=== PATIENT | female | born 1990 | race Caucasian/White ===

== ENCOUNTER → 2016-07-28 | Outpatient (CLI) | payer MEDICAID ==
--- NOTE | 2016-07-28 11:32 | US ---
EXAMINATION TYPE: US OB anatomy transabd DATE OF EXAM: 07/28/2016 10:12 AM COMPARISON: NONE HISTORY: LGA TECHNIQUE: Transabdominal (TA) EXAM MEASUREMENTS: GESTATIONAL AGE / DATING Physician Established: (19 weeks/5 days) EDC: 12/17/2016 Dates by LMP: unknown Dates by First Scan: today Dates by Current Scan for: (19 weeks/1 day) EDC: 12/21/2016 SURVEY IUP: Single PLACENTA: Posterior PREVIA: No previa ELAINE: 9.6 cm wnl for machine range (8.5- 22.7cm). A remeasure with LLQ is 5.5cm Pocket A/P on image #49 which would = 10.5cm ELAINE. CERVICAL LENGTH (transabdominal: norm > 3.0cm): 3.1 cm BIOMETRY PRESENTATION: Variable LIE: Oblique BPD: 4.4 cm 19 weeks / 2 days HC: 16.3 cm 19 weeks / 0 days AC: 14.1 cm 19 weeks / 3 days FL: 2.9 cm 18 weeks / 6 days ESTIMATED WEIGHT IN GRAMS: 277.8 grams ESTIMATED WEIGHT IN LBS/OZS: 0 lbs. 10 oz. WEIGHT PERCENTAGE BASED ON ESTABLISHED DATE: 18.6 % HC/AC: 1.16 FL/AC: 20.55 HEART RATE: 135 bpm RHYTHM: Normal ANATOMY SEEN (within normal limits): * Lateral Vent (< 1 cm) = 0.7cm * Cisterna Magna (< 1.1 cm) =0.4cm * Nuchal Fold (< 0.6 cm) = 0.4cm * Cerebellum (varies with age) = 2.0cm Choroid Plexus (bilateral) Midline Falx Cavus Septi Pellucidi Four Chamber Heart Outflow tracts: LVOT/RVOT Stomach Situs Diaphragm Kidneys (bilateral) Bladder Cord Insert Three Vessel Cord Longitudinal Spine Transverse Spine Arms (bilateral) Legs (bilateral) ANATOMY NOT SEEN: Nose / Lips: early jaw was imaged, however, optimal imaging would be at > 20 weeks gestation IMPRESSION: Single, live, IUP, 19 weeks/1 day, EDC: 12/21/2016, HR 135bpm
== END | disposition home or self-care (01) ==
LOC: RADUSWWP 08:55
PROVIDERS: ATTEND Obstetrics & Gynecology
DX: O36.62X0 Maternal care for excessive fetal growth, second trimester, not applicable or unspecified (principal); Z3A.19 19 weeks gestation of pregnancy
CPT/HCPCS: 76811

== ENCOUNTER → 2016-09-09 | Outpatient (CLI) | payer MEDICAID ==
[2016-09-09 11:12] LABS: CH 29.8; CHCM 32.9; HCT 36.6 % (34.0-46.0); HDW 2.45; HGB 12.3 gm/dL (11.4-16.0); MCH 30.5 pg (25.0-35.0); MCHC 33.5 g/dL (31.0-37.0); RBC 4.02 m/uL (3.80-5.40); RDW 13.7 % (11.5-15.5); WBC 10.2 k/uL (3.8-10.6)
== END | disposition home or self-care (01) ==
LOC: LABWHC1 09:40
PROVIDERS: ATTEND Obstetrics & Gynecology
DX: Z34.02 Encounter for supervision of normal first pregnancy, second trimester (principal); Z3A.00 Weeks of gestation of pregnancy not specified
CPT/HCPCS: 36415; 82950; 85027

== ENCOUNTER → 2016-11-15 | Outpatient (CLI) | payer MEDICAID ==
--- NOTE | 2016-11-15 13:24 | US ---
EXAMINATION TYPE: US OB anatomy transabd DATE OF EXAM: 11/15/2016 10:35 AM COMPARISON: 07/28/2016 HISTORY: 26-year-old female O36.63X0 3rd trimester 35 week scan TECHNIQUE: Transabdominal scanning FINDINGS: EXAM MEASUREMENTS: GESTATIONAL AGE / DATING Physician Established: (35 weeks/3 days) EDC: 12/17/2016 Dates by LMP: unknown Dates by First Scan: LEAD FORMER here Dates by Current Scan for: (34 weeks/3 days) EDC: 12/24/2016 SURVEY IUP: Single PLACENTA: Fundal PREVIA: No previa ELAINE: 19.4 cm Normal CERVICAL LENGTH (transabdominal: norm > 3.0cm): 3.4 cm BIOMETRY PRESENTATION: Vertex LIE: Longitudinal BPD: 8.7 cm 35 weeks / 1 days HC: 31.4 cm 35 weeks / 2 days AC: 31.6 cm 35 weeks / 4 days FL: 6.6 cm 34 weeks / 0 days ESTIMATED WEIGHT IN GRAMS: 2585 grams ESTIMATED WEIGHT IN LBS/OZS: 5 lbs. 11 oz. WEIGHT PERCENTAGE BASED ON ESTABLISHED DATE: 38% vs 18.6% on 07/28/2016. HC/AC: 0.9 Normal FL/AC: 20.9 Normal HEART RATE: 132 bpm RHYTHM: Normal ANATOMY SEEN (within normal limits): Midline Falx Cavus Septi Pellucidi Outflow tracts: RVOT Stomach Situs Nose / Lips Diaphragm Kidneys (bilateral) Bladder Three Vessel Cord ANATOMY NOT SEEN OR SUBOPTIMALLY VISUALIZED: due to age and crowding Lateral Vent (< 1 cm) Cisterna Magna (< 1.1 cm) Nuchal Fold (< 0.6 cm) Cerebellum (varies with age) Choroid Plexus (bilateral) LVOT Cord Insert Arms (bilateral) Legs (bilateral) Longitudinal Spine - limited delineation of skin line Transverse Spine ANATOMY WHICH SHOULD BE REASSESSED: Four Chamber Heart - prominent space along the interatrial region. IMPRESSION: 1. Single live intrauterine with established gestational age of 35 weeks 3 days. Current ul trasound biometry is smaller but concordant (34 weeks 3 days) placing the child at the 38th percentil e for weight. There has been appropriate interval growth from 07/28/2016. 2. Recommend follow-up for the four-chamber heart view and correlation to appearance on the patient's scan at the office. There is a prominent space in the region of the interatrial septum. This may si mply be on the basis of redundant flap of the foramen ovale. ASD II should be excluded.
== END | disposition home or self-care (01) ==
LOC: RADUSWWP 09:46
PROVIDERS: ATTEND Obstetrics & Gynecology
DX: O36.63X0 Maternal care for excessive fetal growth, third trimester, not applicable or unspecified (principal); Z3A.35 35 weeks gestation of pregnancy
CPT/HCPCS: 76811; 87081

== ENCOUNTER 2016-11-29 11:17 | Outpatient (CLI) | payer MEDICAID | END 2016-11-29 12:13 | disposition home or self-care (01) | LOC: FBPOP 11:17 | PROVIDERS: ATTEND Obstetrics & Gynecology | DX: O26.93 Pregnancy related conditions, unspecified, third trimester (principal); Z3A.37 37 weeks gestation of pregnancy | CPT/HCPCS: 59025 ==

== ENCOUNTER 2016-12-01 05:50 | Inpatient (IN) | payer MEDICAID ==
--- NOTE | 2016-12-01 05:52 | P.HPOB ---
History of Present Illness H&P Date: 12/01/16 Chief Complaint: Umbilical vein varix This patient is a pleasant 26-year-old 1 para 0 female estimated date of confinement 12/17/2016 estimated gestational age 37-5/7 who presents to labor and delivery for induction of labor secondary to umbilical varix. Patient's history is such that she had a 35 week ultrasound that the radiologist thought she had a atrioseptal defect. Patient was sent to maternal- medicine for heart echo and level III ultrasound. cardiac echo was normal without evidence of a atrioseptal defect however she was found to have an umbilical vein varix. This dilation was approximately [address] Sauceda maternal medicine recommended delivery between 37 and 38 weeks due to increased risk of complications. Patient's been watched with nonstress tests which have been reactive and now presents for delivery. care otherwise has been uncomplicated. Review of Systems Constitutional: Denies chills, Denies fever Ears, nose, mouth and throat: Denies headache, Denies sore throat Cardiovascular: Denies chest pain, Denies shortness of breath Respiratory: Denies cough Gastrointestinal: Reports heartburn Genitourinary: Reports Menstruation: Reports amenorrhea Musculoskeletal: Reports as per HPI Integumentary: Denies pruritus, Denies rash Neurological: Denies numbness, Denies weakness Past Medical History Past Medical History: No Reported History History of Any Multi-Drug Resistant Organisms: None Reported Past Surgical History: Adenoidectomy Additional Past Surgical History / Comment(s): Patient is had a wisdom tooth extraction. Past Anesthesia/Blood Transfusion Reactions: No Reported Reaction Past Psychological History: No Psychological Hx Reported Smoking Status: Never smoker Past Alcohol Use History: None Reported Past Drug Use History: None Reported Medications and Allergies Allergies Allergy/AdvReac Type Severity Reaction Status Date / Time No Known Allergies Allergy Verified 11/29/16 12:30 Exam - OBG Physical Exam Abdomen: bowel sounds normal, no diffuse tenderness, no bruit present, no guarding noted, no hepatomegaly, no splenomegaly, no mass Vulva: both: normal Cervix: Cervix in the office was 1-2 cm dilated. Uterus: enlarged (Fundal height the office was consistent with a term . ) Results labs show her blood type to be a positive, rubella immune, RPR is nonreactive, hepatitis B is negative, HIV is nonreactive, Glucola was normal, group B strep was negative. Ultrasound per maternal medicine as above. Assessment and Plan (1) Umbilical vein abnormality complicating Narrative/Plan: This is a pleasant 26-year-old 1 para 0 female 37-5/7 weeks gestation admitted to labor and delivery for induction secondary to umbilical vein varix. Plan is induction of labor and anticipate vaginal delivery. Status: Acute
[2016-12-01] MEDS ORDERED: METHYLERGONOVINE 0.2 MG/ML 1 ML AMP IM PRN (06:15)
[2016-12-01] MEDS ORDERED: TERBUTALINE 1 MG/ML VIAL SQ PRN (06:15)
[2016-12-01] MEDS ORDERED: LIDOCAINE 1% (PF) 10 MG/ML (30 ML SDV) SQ PRN (06:15)
[2016-12-01] MEDS ORDERED: CARBOPROST TROMETHAMINE 250 MCG/ML 1 ML AMP IM PRN (06:15)
[2016-12-01] MEDS ORDERED: OXYTOCIN 10 UNIT/ML 1 ML VIAL IM PRN (06:15)
[2016-12-01] MEDS ORDERED: OXYTOCIN 20 UNITS/1000 ML NS 1,000 ML IV SCH ×2 (06:15→20:15)
[2016-12-01 06:28] LABS: Basophils % (A) 0 %; CHCM 33.6; Eosinophils # (A) 0.2 k/uL (0-0.7); Eosinophils % (A) 2 %; HCT 38.5 % (34.0-46.0); HDW 2.44; Luc % (Auto) 3; Lymphocytes # (A) 2.3 k/uL (1.0-4.8); Lymphocytes % (A) 25 %; MCH 30.4 pg (25.0-35.0); MCHC 33.8 g/dL (31.0-37.0); MCV 89.9 fL (80.0-100.0); Mean Platelet Volume 10.2; Monocytes # (A) 0.6 k/uL (0-1.0); Monocytes % (A) 6 %; Neutrophils % (A) 64 %; RBC 4.29 m/uL (3.80-5.40); RDW 14.1 % (11.5-15.5); WBC 9.4 k/uL (3.8-10.6); WBC (Perox) 9.85
[2016-12-01 06:35] VITALS: BMI 29.7
[2016-12-01] MEDS: LACTATED RINGERS 1,000 ML IV SCH ×2 (06:37→12:40)
[2016-12-01] MEDS ORDERED: BUPIVACAINE (PF) 0.25% 25 ML, fentaNYL (PF) 200 MCG in SODIUM CHLORIDE 0.9% 71 ML EPIDURAL ONE (16:22)
[2016-12-01] MEDS ORDERED: CITRIC ACID-SODIUM CITRATE 15 ML CUP PO ONE (19:08)
[2016-12-01] MEDS ORDERED: ceFAZolin 2 GM in SODIUM CHLORIDE 0.9% 100 ML IVPB ONE (19:08)
[2016-12-01] MEDS ORDERED: OXYTOCIN 10 UNIT/ML 1 ML VIAL ONE ×2 (19:20)
[2016-12-01] MEDS ORDERED: KETOROLAC 30 MG/ML 1 ML VIAL ONE (19:20)
[2016-12-01] MEDS ORDERED: SODIUM CHLORIDE 0.9% 100 ML BAG ONE (19:20)
[2016-12-01] MEDS ORDERED: ONDANSETRON 4 MG/2 ML VIAL ONE (19:20)
[2016-12-01] MEDS ORDERED: ePHEDrine 50 MG/ML 1 ML AMP ONE (19:20)
[2016-12-01] MEDS ORDERED: BUPIVACAINE (PF) 0.25% 30 ML VIAL ONE (19:20)
[2016-12-01] MEDS ORDERED: CHLOROPROCAINE 3% 30 MG/ML 20 ML VIAL ONE (19:20)
[2016-12-01] MEDS ORDERED: fentaNYL (PF) 50 MCG/ML 5 ML AMP ONE (19:20)
[2016-12-01] MEDS ORDERED: METOCLOPRAMIDE 5 MG/ML 2 ML VIAL IVP PRN (20:07)
[2016-12-01] MEDS ORDERED: SIMETHICONE 80 MG CHEWABLE PO PRN (20:07)
[2016-12-01] MEDS ORDERED: diphenhydrAMINE 25 MG CAP PO PRN (20:07)
[2016-12-01] MEDS ORDERED: Acetaminophen-Codeine 300-30mg TAB PO PRN (20:07)
[2016-12-01] MEDS ORDERED: diphenhydrAMINE 50 MG/ML 1 ML VIAL IVP PRN (20:07)
[2016-12-01] MEDS ORDERED: ZOLPIDEM 5 MG TAB PO PRN (20:07)
[2016-12-01] MEDS ORDERED: ONDANSETRON 4 MG/2 ML VIAL IVP PRN (20:07)
[2016-12-01] MEDS ORDERED: ACETAMINOPHEN TAB 325 MG TAB PO PRN (20:07)
[2016-12-01] MEDS ORDERED: LANOLIN CREAM 5 GM TUBE TOPICAL PRN (20:07)
[2016-12-01] MEDS ORDERED: NALOXONE 0.4 MG/ML 1 ML VIAL IV PRN (20:07)
--- NOTE | 2016-12-01 20:19 | P.OP ---
Date of Procedure: 12/01/16 Preoperative Diagnosis: #1: 37-5/7 week . #2: Umbilical vein varix #3: Nonreassuring heart tones remote from delivery. Postoperative Diagnosis: Same Procedure(s) Performed: Primary low transverse section Implants: Anesthesia: epidural Surgeon: Christopher Aragon Head Of Business Development #1: Talat Acosta Estimated Blood Loss (ml): 800 Pathology: other Condition: stable (Central) Disposition: floor Indications for Procedure: Please see dictated H&P for intimate details of this patient's admission. Brief summary this is a pleasant 26-year-old 1 para 0 female 37-5/7 weeks' gestation is admitted to labor and delivery for induction of labor secondary to umbilical vein varix. Patient is 1-2 cm dilated on admission and has artificial rupture membranes for clear fluid. Labor is induced with Pitocin per protocol. Patient does get to complete that is having some deep variable decelerations. Patient attempts to push but with every contraction she continues to have deep variables and is not close to delivery and at this time I recommended proceed with section for delivery. Patient does understand the surgery and risks including risks of infection, bleeding, possible injury bowel, bladder, vessels, and/or other organs. All the patient' s questions are answered and consent is obtained. Operative Findings: This is a vigorous viable female infant Apgars 9 and 9 delivery time is 1939 hrs. had a nuchal cord 1. Description of Procedure: This patient has a Morris catheter placed to straight drain. She subsequently taken to the operating room where her epidural is dosed up for sufficient level of surgery. With an adequate level of anesthesia she has abdominal prep and drape. Scalpels taken and a Pfannenstiel skin incision is then made. A second scalpel is taken down the fascia, and the fascia scored with a scalpel. Fascial incision extended bilaterally using the Rowe scissors. Fascia is then dissected off the rectus muscles sharply. Rectus muscles are the peritoneum identified and entered sharply. Peritoneal incision extended superior and inferior without difficulty. Bladder blade is then placed. Bladder peritoneum was taken sharply off the lower uterine segment. Bladder blade is then placed. Scalpels and taken low transverse uterine incision is made. Using a hemostat I enter the uterine cavity bluntly. There is loss of clear fluid this incision is extended bluntly as well. 's head is then guided through the incision with fundal pressure delivered. Mouth and nares are bulb suctioned. There is a nuchal cord which is reduced. We then have delivery anterior posterior shoulder and rest this 's body. This is a vigorous viable female infant Apgars are 9 and 9 delivery time is 1939 hrs. After delivery of the infant the umbilical cord is doubly clamped and cut appears to be trivascular. The placenta is then manually extracted intact. Uterus is then externalized and uterine incision demarcated with Hernandez clamps. Uterine incision is then closed using 0 Vicryl running locked fashion 2 layers. Excellent hemostasis is noted. Bladder peritoneum was then closed using a 3-0 Vicryl. Excess fluid is removed from the abdomen and pelvis. Uterus tubes and ovaries appear normal for term gestation. Uterus placed back into the abdomen. Parietal peritoneum was then closed using 0 Vicryl running fashion. Rectus muscles reapproximated in 0 Vicryl interrupted fashion. Fascia is then closed using 0 PDS. Fascial incision is intact and hemostatic. Subcutaneous tissues and closed using a 3-0 Vicryl. Skin is and closed using jessica. All counts are correct 3. There are no complications. Infant and mother are stable in their room.
[2016-12-01] MEDS: HYDROmorphone PCA 5 MG/25 ML SYRINGE IV PRN ×2 (20:33→23:09)
[2016-12-02] MEDS: KETOROLAC 30 MG/ML 1 ML VIAL IVP PRN ×4 (01:24→22:06)
[2016-12-02] MEDS: LACTATED RINGERS 1,000 ML IV SCH ×2 (01:25→12:50)
[2016-12-02] MEDS: ceFAZolin 2 GM in SODIUM CHLORIDE 0.9% 100 ML IVPB SCH ×2 (04:11→12:50)
--- NOTE | 2016-12-02 05:37 | P.PNOBGPC ---
Subjective - Subjective Patient reports: Reports appetite normal, Reports voiding normally, Reports pain well controlled, Reports ambulating normally : doing well Objective - Vital Signs Latest vital signs: Vital Signs Temp Pulse Pulse Resp BP Pulse Ox 12/02/16 04:00 98.5 F 75 17 114/68 95 12/01/16 23:35 99.0 F 87 18 109/88 98 12/01/16 22:05 84 18 120/66 99 12/01/16 21:35 97.3 F L 85 18 114/58 99 12/01/16 21:05 79 18 107/58 100 12/01/16 20:50 86 17 106/58 100 12/01/16 20:35 98.2 F 93 18 118/67 100 12/01/16 20:20 112 H 17 110/58 12/01/16 20:05 97.5 F L 104 H 18 109/55 100 12/01/16 06:25 97.5 F L 78 18 128/82 Intake and Output 12/01/16 12/01/16 12/02/16 14:59 22:59 06:59 Intake Total 839.15 600 Output Total 1400 Balance -560.85 600 Intake: IV 800 Intake, IV Titration 39.15 Amount Oxytocin 20 Units/1000 ml 39.15 Ns 1,000 ml @ 1 MILLIUNIT/MIN 3 mls/hr IV .Q24H [facility] Rx#:[id number] Oral 600 Output: Urine 600 Estimated Blood Loss 800 Other: Voiding Method Indwelling Catheter Indwelling Catheter # Voids 1 - Exam Lungs: bilateral: normal Chest: Normal S1, Normal S2 Extremities: Present: normal Abdomen: Present: normal appearance, soft. Absent: distention, tenderness Incision: Present: normal, dry, intact Uterus: Present: normal, firm - Labs Labs: Abnormal Lab Results - Last 24 Hours (Table) 12/01/16 Range/Units 06:10 Plt Count 147 L (150-450) k/uL Assessment and Plan (1) Umbilical vein abnormality complicating Narrative/Plan: Postoperative day #1. Patient is resting without complaints. Vital signs are stable she is afebrile. Uterus is firm appropriately tender. Incision is intact and dry. CBC is pending at this time. Plan today is to continue routine postoperative care. We will discontinue her TOP IRONER, discontinue her catheter, advance to regular diet, allow patient to shower. Current Visit: Yes Status: Acute Code(s): O35.8XX0 - MATERNAL CARE FOR OTH ABNORMALITY AND DAMAGE, UNSP SNOMED Code(s): 38046124
[2016-12-02 06:24] LABS: Basophils % (A) 0 %; CH 29.9; CHCM 33.3; Eosinophils # (A) 0.1 k/uL (0-0.7); Eosinophils % (A) 0 %; HCT 33.6 % (34.0-46.0); HDW 2.42; HGB 11.1 gm/dL (11.4-16.0); Luc # (Auto) 0.14; Luc % (Auto) 1; Lymphocytes # (A) 1.5 k/uL (1.0-4.8); Lymphocytes % (A) 9 %; MCH 29.9 pg (25.0-35.0); MCHC 33.1 g/dL (31.0-37.0); MCV 90.2 fL (80.0-100.0); Mean Platelet Volume 10.2; Monocytes # (A) 0.6 k/uL (0-1.0); Monocytes % (A) 3 %; Neutrophils # (A) 15.6 k/uL (1.3-7.7); Neutrophils % (A) 87 %; RBC 3.72 m/uL (3.80-5.40); RDW 14.2 % (11.5-15.5); WBC 17.9 k/uL (3.8-10.6); WBC (Perox) 19.44
[2016-12-02] MEDS: SENNOSIDES-DOCUSATE SODIUM 1 EACH TAB PO SCH ×2 (10:02→19:50)
[2016-12-02] MEDS: Acetaminophen-Codeine 300-30mg TAB PO PRN ×2 (12:50→19:50)
[2016-12-02 23:11] VITALS: RESP 16
[2016-12-03] MEDS: Acetaminophen-Codeine 300-30mg TAB PO PRN ×2 (01:44→19:46)
--- NOTE | 2016-12-03 05:45 | P.PNOBGPC ---
Subjective - Subjective Patient reports: Reports appetite normal, Reports voiding normally, Reports pain well controlled, Reports ambulating normally [place]que[place]: doing well Objective - Vital Signs Latest vital signs: Vital Signs Temp Pulse Resp BP Pulse Ox 12/02/16 23:09 98.4 F 83 16 110/59 97 12/02/16 20:00 98.0 F 83 18 112/80 12/02/16 16:00 98.5 F 81 18 113/62 12/02/16 12:00 97.7 F 87 18 114/72 12/02/16 08:00 97.9 F 81 18 105/67 Intake and Output 12/02/16 12/02/16 12/03/16 14:59 22:59 06:59 Intake Total 500 Output Total 1400 Balance -1400 500 Intake: IV 500 Invasive Line 1 500 Output: Urine 1400 Other: # Voids 1 - Exam Lungs: bilateral: normal Chest: Normal S1, Normal S2 Extremities: Present: normal Abdomen: Present: normal appearance, soft. Absent: distention, tenderness Incision: Present: normal, dry, intact Uterus: Present: normal, firm - Labs Labs: Abnormal Lab Results - Last 24 Hours (Table) 12/02/16 Range/Units 05:22 WBC 17.9 H (3.8-10.6) k/uL RBC 3.72 L (3.80-5.40) m/uL Hgb 11.1 L (11.4-16.0) gm/dL Hct 33.6 L (34.0-46.0) % Plt Count 127 L (150-450) k/uL Neutrophils # 15.6 H (1.3-7.7) k/uL Assessment and Plan (1) Umbilical vein abnormality complicating Narrative/Plan: Post operative day #2. Patient is resting without complaints. Vital signs are stable she's afebrile. Uterus is firm nontender her incision is intact and dry. CBC yesterday was normal. Plan is to continue routine postoperative care and discharge home tomorrow. Current Visit: Yes Status: Acute Code(s): O35.8XX0 - MATERNAL CARE FOR OTH ABNORMALITY AND DAMAGE, UNSP SNOMED Code(s): 15961389
--- NOTE | 2016-12-03 05:47 | P.DS ---
Providers Date of admission: 12/01/16 05:50 Expected date of discharge: 12/04/16 Attending physician: Christopher Aragon Primary care physician: Ilda Fitzgerald - Discharge Diagnosis(es) (1) Umbilical vein abnormality complicating Current Visit: Yes Status: Acute Hospital Course: Please see dictated H&P for intimate details of this patient's admission. Brief summary this pleasant 26-year-old 1 para 0 female 37-5/7 weeks gestation who is admitted to labor and delivery for induction of labor secondary to umbilical vein varix. Patient's subsequent undergoes a primary low transverse section for nonreassuring heart tones for viable female infant. Please see dictated delivery note. By post operative day #3 patient's felt be stable for discharge home follow up with me in 1 week. Procedures: Induction of labor and primary low transverse section. Patient Condition at Discharge: Good Plan - Discharge Summary New Discharge Prescriptions: New Acetaminophen-Codeine 300-30mg [Tylenol w/codeine #3] 1 - 2 each PO Q4HR PRN #40 tab PRN Reason: Mild Pain Ibuprofen [Motrin] 600 mg PO Q6HR PRN #40 tab PRN Reason: Mild Pain Or Fever >= 100.5 No Action Docusate [Colace] 100 mg PO DAILY PRN PRN Reason: Constipation Calcium Carbonate [Tums] 1,000 mg PO QID PRN PRN Reason: Heartburn Pnv,Calcium 72/Iron/Folic Acid [ Plus Tablet] 1 tab PO DAILY Discharge Medication List Calcium Carbonate [Tums] 1,000 mg PO QID PRN 12/01/16 [History] Docusate [Colace] 100 mg PO DAILY PRN 12/01/16 [History] Pnv,Calcium 72/Iron/Folic Acid [ Plus Tablet] 1 tab PO DAILY 12/01/16 [ History] Acetaminophen-Codeine 300-30mg [Tylenol w/codeine #3] 1 - 2 each PO Q4HR PRN # 40 tab 12/03/16 [Rx] Ibuprofen [Motrin] 600 mg PO Q6HR PRN #40 tab 12/03/16 [Rx] Follow up Appointment(s)/Referral(s): Christopher Aragon MD [STAFF PHYSICIAN] - 01/14/17 10:15 am (Please see me in 1 week for an incision check as well.) Patient Instructions/Handouts: (DC) Activity/Diet/Wound Care/Special Instructions: No strenuous activity or heavy lifting for 6 weeks. No intercourse or anything per vagina for 6 weeks. Discharge Disposition: HOME SELF-CARE
[2016-12-03] MEDS: KETOROLAC 30 MG/ML 1 ML VIAL IVP PRN (08:48)
[2016-12-03] MEDS: SENNOSIDES-DOCUSATE SODIUM 1 EACH TAB PO SCH ×2 (08:49→19:46)
[2016-12-03] MEDS: IBUPROFEN 600 MG TAB PO PRN ×2 (14:03→23:17)
[2016-12-03] MEDS: LACTATED RINGERS 1,000 ML IV SCH ×2 (21:40→21:41)
[2016-12-04] MEDS: Acetaminophen-Codeine 300-30mg TAB PO PRN ×2 (02:33→11:58)
[2016-12-04] MEDS: SENNOSIDES-DOCUSATE SODIUM 1 EACH TAB PO SCH (09:01)
[2016-12-04] MEDS: IBUPROFEN 600 MG TAB PO PRN (09:01)
[2016-12-04 09:44] VITALS: BP 113/71; PULSE 89; TEMP 97.3
== END 2016-12-04 12:41 | disposition home or self-care (01) | DRG 766 ==
LOC: 4FBP 05:50
PROVIDERS: ADMIT Obstetrics & Gynecology; ATTEND Obstetrics & Gynecology
PROC: 3E033VJ Introduction of Other Hormone into Peripheral Vein, Percutaneous Approach (ICD-10-PCS; 2016-12-01)
PROC: 10D00Z1 Extraction of Products of Conception, Low, Open Approach (ICD-10-PCS; principal; 2016-12-01 19:34)
DX: O35.8XX0 Maternal care for other (suspected) fetal abnormality and damage, not applicable or unspecified (principal); O76 Abnormality in fetal heart rate and rhythm complicating labor and delivery; O69.81X0 Labor and delivery complicated by cord around neck, without compression, not applicable or unspecified; Z37.0 Single live birth; Z3A.37 37 weeks gestation of pregnancy; Z79.899 Other long term (current) drug therapy
CPT/HCPCS: 85025; 88307

== ENCOUNTER → 2018-01-19 | Outpatient (CLI) | payer MEDICAID ==
--- NOTE | 2018-01-19 15:32 | US ---
EXAMINATION TYPE: Transabdominal DATE OF EXAM: 10/04/17 COMPARISON: NONE CLINICAL HISTORY: Z36 confirm dates; EXAM PERFORMED: Transabdominal (TA) EXAM MEASUREMENTS: GESTATIONAL AGE / DATING Physician Established: Not yet established Dates by LMP: (11 weeks/5 days) EDC: 08/05/2018 Dates by First Scan: No previous this is first scan Dates by Current Scan for: (11 weeks/ 2 days) EDC: 08/08/2018 MATERNAL ANATOMY Uterus: 14.5 x 9.6 x 6.9cm Right Ovary: not seen Left Ovary: not seen Post CDS / Adnexa: wnl Presence of free fluid: no Presence of corpus luteal cyst: not seen Presence of subchorionic bleed: anechoic area is noted inferior uterus and inferior to amniotic sac = 1.0 x 1.2 x 0.9cm GESTATION / SURVEY CRL: 4.5 (11 weeks/2 days) Yolk Sac (normal less than 6mm): not seen Heart Rate: 147 bpm Rhythm: Normal IUP: Viable IUP Nuchal Translucency 10-14wks (normal less than 3mm): 0.8mm Date of LMP: 10/29/2017 Beta HcG (if available): NA Single, live IUP, 11 weeks/ 2 days, EDC: 08/08/2018, HR 147bpm. IMPRESSION: Single live intrauterine with a sonographic age of 11 weeks and 2 days and estimated date o f delivery of 08/08/2018, concordant with menstrual age. A small subchorionic hemorrhage measures up to 1.2 cm and occupies less than 25% of the gestational sac diameter.
[2018-01-19 15:47] LABS: HCT 35.9 % (34.0-46.0); HGB 12.1 gm/dL (11.4-16.0); MCH 28.5 pg (25.0-35.0); MCHC 33.8 g/dL (31.0-37.0); MCV 84.4 fL (80.0-100.0); Mean Platelet Volume 7.8; Platelet Count 211 k/uL (150-450); RBC 4.25 m/uL (3.80-5.40); RDW 13.4 % (11.5-15.5); WBC 10.7 k/uL (3.8-10.6)
[2018-01-19 16:00] LABS: Glucose 80 mg/dL (74-99)
== END | disposition home or self-care (01) ==
LOC: RADUSWWP 14:23
PROVIDERS: ATTEND Obstetrics & Gynecology
DX: O20.9 Hemorrhage in early pregnancy, unspecified (principal); Z3A.11 11 weeks gestation of pregnancy
CPT/HCPCS: 36415; 76801; 76813; 82565; 82947; 85027; 86762; 86780; 86850; 86900; 86901; 87340

== ENCOUNTER → 2018-03-20 | Outpatient (CLI) | payer MEDICAID ==
--- NOTE | 2018-03-20 12:31 | US ---
EXAMINATION TYPE: US OB anatomy transabd DATE OF EXAM: 03/20/2018 COMPARISON: 01/19/2018 HISTORY: 28-year-old female O36.62X0 2nd Trimester large for dates. Anatomy scan. TECHNIQUE: Transabdominal (TA) EXAM MEASUREMENTS: GESTATIONAL AGE / DATING Physician Established: (20 weeks/2 days) EDC: 08/05/2018 Dates by LMP: (20 weeks/2 days) EDC: 08/05/2018 Dates by First Scan: (19 weeks/6 days) EDC: 08/08/2018 Dates by Current Scan for: (19 weeks/2 days) EDC: 08/12/2018 (4 days less growth than expected from 01/19/2018) SURVEY IUP: Single PLACENTA: Anterior PREVIA: No previa, the inferior placental margin measures approximately 4 cm from the internal cervic al os. ELAINE: 12.0 cm Normal CERVICAL LENGTH (transabdominal: norm > 3.0cm): 3.7 cm BIOMETRY PRESENTATION: Variable BPD: 4.5 cm 19 weeks / 4 days HC: 16.9 cm 19 weeks / 4 days AC: 14.5 cm 19 weeks / 6 days FL: 3.0 cm 19 weeks / 2 days ESTIMATED WEIGHT IN GRAMS: 298.7 grams ESTIMATED WEIGHT IN LBS/OZ: 0 lbs. 11 oz. WEIGHT PERCENTAGE BASED ON ESTABLISHED DATE: 12.7 % HC/AC: 1.17 Normal FL/AC: 21 Normal HEART RATE: 147 bpm RHYTHM: Normal ANATOMY SEEN (within normal limits): Lateral Vent (< 1 cm) 0.7 cm Cisterna Magna (< 1.1 cm) 0.4 cm Nuchal Fold: 2.5 mm Cerebellum (varies with age) 2.0 cm Choroid Plexus (bilateral) Midline Falx Cavus Septi Pellucidi Four Chamber Heart Outflow tracts: LVOT/RVOT Stomach Situs Nose / Lips Diaphragm Kidneys (bilateral) Bladder Cord Insert Three Vessel Cord Longitudinal Spine Transverse Spine Arms (bilateral) Legs (bilateral) Single, viable IUP/ No anatomical abnormality visualized at this time IMPRESSION: 1. Single live intrauterine with estimated gestational age of 20 weeks 2 days by LMP. Curre nt ultrasound biometry is smaller (19 weeks 2 days) with 4 days less growth than expected from 018. 2. This places the gestation at the 13th percentile for weight. Continued follow-up as indicated. 3. Structures on the survey appear normal. The survey is complete.
== END | disposition home or self-care (01) ==
LOC: RADUSWWP 08:49
PROVIDERS: ATTEND Obstetrics & Gynecology
DX: O36.62X0 Maternal care for excessive fetal growth, second trimester, not applicable or unspecified (principal); Z3A.20 20 weeks gestation of pregnancy
CPT/HCPCS: 76811

== ENCOUNTER → 2018-04-17 | Outpatient (CLI) | payer MEDICAID ==
[2018-04-17 10:50] LABS: HCT 35.8 % (34.0-46.0); MCH 30.2 pg (25.0-35.0); MCHC 33.4 g/dL (31.0-37.0); MCV 90.5 fL (80.0-100.0); Mean Platelet Volume 8.3; Platelet Count 157 k/uL (150-450); RBC 3.96 m/uL (3.80-5.40); RDW 14.2 % (11.5-15.5); WBC 7.9 k/uL (3.8-10.6)
== END ==
LOC: LABWHC1 08:21
PROVIDERS: ATTEND Obstetrics & Gynecology
DX: Z34.82 Encounter for supervision of other normal pregnancy, second trimester (principal)
CPT/HCPCS: 36415; 82950; 85027

== ENCOUNTER → 2018-05-16 | Outpatient (CLI) | payer MEDICAID ==
--- NOTE | 2018-05-17 13:14 | US ---
EXAMINATION TYPE: US OB anatomy transabd DATE OF EXAM: 05/16/2018 COMPARISON: US HISTORY: O36.63X0 Maternal care for excessive growth LGA TECHNIQUE: Transabdominal (TA) EXAM MEASUREMENTS: GESTATIONAL AGE / DATING Physician Established: (28 weeks/3 days) EDC: 08/05/2018 Dates by LMP: (28 weeks/3 days) EDC: 08/05/2018 Dates by First Scan: (28 weeks/0 days) EDC: 08/08/2018 Dates by Current Scan for: (27 weeks/5 days) EDC: 08/10/2018 SURVEY IUP: Single PLACENTA: Anterior PREVIA: No previa ELAINE: 16.3 cm Normal CERVICAL LENGTH (transabdominal: norm > 3.0cm): 3.6 cm BIOMETRY PRESENTATION: Vertex BPD: 7.1 cm 28 weeks / 4 days HC: 26.5 cm 28 weeks / 6 days AC: 24.0 cm 28 weeks / 2 days FL: 5.1 cm 27 weeks / 1 days ESTIMATED WEIGHT IN GRAMS: 1152 grams ESTIMATED WEIGHT IN LBS/OZ: 2 lbs. 9 oz. WEIGHT PERCENTAGE BASED ON ESTABLISHED DATE: 21.5 % HC/AC: 1.11 Normal FL/AC: 21 Normal HEART RATE: 150 bpm RHYTHM: Normal ANATOMY SEEN (within normal limits): * Lateral Vent (< 1 cm) 0.9 cm Midline Falx Cavus Septi Pellucidi Four Chamber Heart Outflow tracts: LVOT Stomach Situs Nose / Lips Diaphragm Kidneys (bilateral) Bladder Cord Insert Three Vessel Cord Longitudinal Spine Transverse Spine ANATOMY NOT SEEN: * Cisterna Magna (< 1.1 cm) cm * Nuchal Fold (< 0.6 cm) cm * Cerebellum (varies with age) cm Choroid Plexus (bilateral) RVOT Arms (bilateral) Legs (bilateral) Single, viable IUP/ Growth parameters in 21st percentile/ No anatomical abnormality visualized at t his time IMPRESSION: 1. Limited small parts evaluation. Portions not visualized documented above. 2. Based on current measurements estimated age is 27 weeks 5 days gestation. This would've a ca lculated EDC of 08/10/2018 based on current ultrasound measurements. Correlate this with her physician established EDC.
== END ==
LOC: RADUSWWP 16:17
PROVIDERS: ATTEND Obstetrics & Gynecology
DX: O36.63X0 Maternal care for excessive fetal growth, third trimester, not applicable or unspecified (principal); Z36.9 Encounter for antenatal screening, unspecified; Z3A.27 27 weeks gestation of pregnancy
CPT/HCPCS: 76811

== ENCOUNTER → 2018-07-06 | Outpatient (CLI) | payer MEDICAID ==
--- NOTE | 2018-07-06 09:43 | US ---
EXAMINATION TYPE: US OB >= 14 wk fetus DATE OF EXAM: 07/06/2018 COMPARISON: None 05/16/2018 CLINICAL HISTORY: O36.63X0 large for dates TECHNIQUE: Transabdominal imaging of the pelvis was obtained. GESTATIONAL AGE / DATING Physician Established: (35 weeks/0 days) EDC: 08/10/2018 Dates by LMP: (35 weeks/5 days) EDC: 08/05/2018 Dates by First Scan: (35 weeks/5 days) EDC: 08/05/2018 Dates by Current Scan: (35 weeks/4 days) EDC: 08/06/2018 SURVEY IUP: Single PLACENTA: Anterior PREVIA: No Previa ELAINE: 19.9 cm Normal CERVICAL LENGTH (transabdominal: norm > 3.0cm): 4.1 cm BIOMETRY PRESENTATION: Vertex LIE: Longitudinal BPD: 8.9 cm 35 weeks / 6 days HC: 32.3 cm 36 weeks / 5 days AC: 32.3 cm 36 weeks / 1 days FL: 6.9 cm 35 weeks / 2 days ESTIMATED WEIGHT IN GRAMS: 2815 grams ESTIMATED WEIGHT IN LBS/OZ: 6 lbs. 3 oz. WEIGHT PERCENTAGE BASED ON ESTABLISHED DATES: 75% HC/AC: 1.0 Normal FL/AC: 21 Normal HEART RATE: 139 bpm RHYTHM: Normal IMPRESSION: Single live intrauterine with a calculated sonographic age of 35 weeks and 4 days and estim ated date of delivery of 08/06/2018, concordant with the physician established menstrual age. Estimated weight of 6 pounds and 3 ounces, weight percentage based on established dates of 75%.
== END | disposition home or self-care (01) ==
LOC: RADUSWWP 08:50
PROVIDERS: ATTEND Obstetrics & Gynecology
DX: O36.63X0 Maternal care for excessive fetal growth, third trimester, not applicable or unspecified (principal); Z3A.35 35 weeks gestation of pregnancy
CPT/HCPCS: 76805

== ENCOUNTER 2018-08-10 05:55 | Inpatient (IN) | payer MEDICAID ==
--- NOTE | 2018-08-09 06:39 | P.HPOB ---
History of Present Illness H&P Date: 08/09/18 Chief Complaint: Postdates induction of labor This patient is a pleasant 28-year-old 2 para 1 female estimated date of confinement 08/04/2018 estimated gestational age 40-6/7 weeks who presents to labor and delivery for postdates induction of labor. Patient had a previous section with her last for nonreassuring heart tones secondary to umbilical cord varix. Patient got to complete but unfortunately hadn't nonreassuring heart tones subsequently had a primary section. Patient's this time has been uncomplicated and she has requested a trial of which I feel is appropriate. She and I have discussed this benefits and risks on multiple occasions and plan is to proceed with induction of labor at this time due to postdates and favorable cervix. Review of Systems Gastrointestinal: Reports heartburn Genitourinary: Reports Menstruation: Reports amenorrhea Past Medical History Past Medical History: No Reported History History of Any Multi-Drug Resistant Organisms: None Reported Past Surgical History: Adenoidectomy, Section, Tonsillectomy Additional Past Surgical History / Comment(s): Patient is had a wisdom tooth extraction. Patient's had previous section secondary to nonreassuring heart tones. Past Anesthesia/Blood Transfusion Reactions: No Reported Reaction Past Psychological History: No Psychological Hx Reported Smoking Status: Never smoker Past Alcohol Use History: None Reported Past Drug Use History: None Reported - Past Family History Mother Family Medical History: Hypertension Father Family Medical History: Cancer Medications and Allergies Home Medications Medication Instructions Recorded Confirmed Type Calcium Carbonate [Tums] 1,000 mg PO QID PRN 12/01/16 12/01/16 History Docusate [Colace] 100 mg PO DAILY PRN 12/01/16 12/01/16 History Pnv,Calcium 72/Iron/Folic Acid 1 tab PO DAILY 12/01/16 12/01/16 History [ Plus Tablet] Acetaminophen-Codeine 300-30mg 1 - 2 each PO Q4HR PRN #40 tab 12/03/16 Rx [Tylenol w/codeine #3] Ibuprofen [Motrin] 600 mg PO Q6HR PRN #40 tab 12/03/16 Rx Allergies Allergy/AdvReac Type Severity Reaction Status Date / Time cephaloglycin Allergy Rash/Hives Verified 12/01/16 06:09 Cephalosporins Allergy Rash/Hives Verified 12/01/16 06:09 Penicillins Allergy Rash/Hives Verified 12/01/16 06:08 Exam - OBG Physical Exam Abdomen: bowel sounds normal, no diffuse tenderness, no bruit present, no guarding noted, no hepatomegaly, no splenomegaly, no mass Vulva: both: normal Vagina: normal moisture, no discharge Cervix: no lesion (Cervix is 3-4 cm 80% effaced -2 station.), no discharge Uterus: enlarged (Fundal height is consistent with term .) Results blood work shows she is A positive, rubella immune, RPR nonreactive, hepatitis B is negative, group B strep was negative, Glucola was normal, most recent ultrasound showed normal growth. Assessment and Plan Assessment: This is a pleasant 28-year-old 2 para 1 female 40-6/7 weeks gestation admitted to labor and delivery for postdates induction of labor. Patient has had a previous section desires . Patient has a favorable cervix is excellent candidate for this, however we have discussed the benefits and risks. Plan is induction of labor and trial of vaginal after section. (1) 41 weeks gestation of Status: Acute Code(s): Z3A.41 - 41 WEEKS GESTATION OF SNOMED Code( s): 64852460 (2) Previous delivery affecting Status: Acute Code(s): O34.219 - MATERNAL CARE FOR UNSP TYPE SCAR FROM PREVIOUS DEL SNOMED Code(s): 122943581
[2018-08-10] MEDS ORDERED: OXYTOCIN 10 UNIT/ML 1 ML VIAL IM PRN (06:02)
[2018-08-10] MEDS ORDERED: LIDOCAINE 0.5% (PF) 5 MG/ML (50 ML SDV) SQ PRN (06:02)
[2018-08-10] MEDS ORDERED: CARBOPROST TROMETHAMINE 250 MCG/ML 1 ML AMP IM PRN (06:02)
[2018-08-10] MEDS ORDERED: METHYLERGONOVINE 0.2 MG/ML 1 ML AMP IM PRN (06:02)
[2018-08-10] MEDS ORDERED: TERBUTALINE 1 MG/ML VIAL SQ PRN (06:02)
[2018-08-10 06:17] VITALS: BMI 29.7
[2018-08-10] MEDS: LACTATED RINGERS 1,000 ML IV SCH ×2 (06:29→12:32)
[2018-08-10] MEDS: OXYTOCIN 20 UNITS/1000 ML NS 1,000 ML IV SCH ×2 (06:29→12:32)
[2018-08-10 06:30] LABS: Basophils % (A) 0 %; Eosinophils # (A) 0.1 k/uL (0-0.7); Eosinophils % (A) 1 %; HCT 39.4 % (34.0-46.0); HGB 13.1 gm/dL (11.4-16.0); Lymphocytes # (A) 1.9 k/uL (1.0-4.8); Lymphocytes % (A) 20 %; MCH 29.4 pg (25.0-35.0); MCHC 33.3 g/dL (31.0-37.0); MCV 88.3 fL (80.0-100.0); Mean Platelet Volume 8.7; Monocytes # (A) 0.6 k/uL (0-1.0); Monocytes % (A) 6 %; Neutrophils # (A) 6.5 k/uL (1.3-7.7); Neutrophils % (A) 70 %; Platelet Count 180 k/uL (150-450); RBC 4.46 m/uL (3.80-5.40); RDW 13.9 % (11.5-15.5); WBC 9.2 k/uL (3.8-10.6)
[2018-08-10] MEDS ORDERED: diphenhydrAMINE 25 MG CAP PO PRN (09:41)
[2018-08-10] MEDS ORDERED: HYDROCORTISONE 2.5% RECTAL CREAM 30 GM TUBE RECTAL PRN (09:41)
[2018-08-10] MEDS ORDERED: WITCH HAZEL 1 EACH MED..PAD TOPICAL PRN (09:41)
[2018-08-10] MEDS ORDERED: LANOLIN CREAM 5 GM TUBE TOPICAL PRN (09:41)
[2018-08-10] MEDS ORDERED: diphenhydrAMINE 50 MG/ML 1 ML VIAL IVP PRN (09:41)
[2018-08-10] MEDS ORDERED: SIMETHICONE 80 MG CHEWABLE PO PRN (09:41)
[2018-08-10] MEDS ORDERED: BENZOCAINE/MENTHOL SPRAY 1 GM/SPRAY AEROSOL TOPICAL PRN (09:41)
[2018-08-10] MEDS ORDERED: ZOLPIDEM 5 MG TAB PO PRN (09:41)
[2018-08-10] MEDS ORDERED: BISACODYL 10 MG SUPP RECTAL PRN (09:41)
[2018-08-10] MEDS: IBUPROFEN 600 MG TAB PO PRN ×2 (10:07→19:27)
[2018-08-10] MEDS: SENNOSIDES-DOCUSATE SODIUM 1 EACH TAB PO SCH ×2 (10:25→19:28)
--- NOTE | 2018-08-10 12:49 | P.PROBDLV ---
Vaginal Delivery Note - . Vaginal Delivery Note: Normal spontaneous vaginal delivery () of a viable male infant Apgars are 9 and 9 at 0932 hours. Please see dictated H&P for intimate details of this patient's admission. Brief summary this is a pleasant 28-year-old 2 para 1 female 40-6/7 weeks gestation who is admitted to labor and delivery for requested induction of labor. Patient's had a previous section for umbilical cord varix and she has requested this which I feel is appropriate. On admission patient is 4 cm dilated. She is artificial rupture membranes for clear amount of clear fluid. Patient's labor is induced with Pitocin but she only goes up to approximately 3 milliunits. Patient's labor progresses very quickly and she gets to complete. Patient pushes approximately 3 or 4 times pushes the head to the perineum. She does have some bradycardia this time to the 80s and 90s and therefore a midline episiotomy is made. We then have controlled delivery of the infant's head over the perineum. Mouth and nares are bulb suctioned. There is a nuchal cord which is easily reduced. We then have delivery the anterior and posterior shoulder and the rest of this infant's body. This is a vigorous viable male Apgars are 9 and 9 delivery time was 0932 hours. After delivery of the the umbilical cord is doubly clamped and cut and appears to be trivascular. The placenta is spontaneously delivered intact. Estimated blood loss is 150 mL. There is a second-degree midline laceration that is repaired with 3-0 Vicryl usual fashion excellent reapproximation is noted. All counts are correct 3. There are no complications. and mother stable delivery room.
[2018-08-10 15:32] LABS: Basophils % (A) 0 %; Eosinophils # (A) 0.2 k/uL (0-0.7); Eosinophils % (A) 1 %; HCT 35.9 % (34.0-46.0); HGB 11.7 gm/dL (11.4-16.0); Lymphocytes # (A) 1.1 k/uL (1.0-4.8); Lymphocytes % (A) 7 %; MCH 29.1 pg (25.0-35.0); MCHC 32.5 g/dL (31.0-37.0); MCV 89.5 fL (80.0-100.0); Mean Platelet Volume 10.4; Monocytes # (A) 0.8 k/uL (0-1.0); Monocytes % (A) 5 %; Neutrophils # (A) 13.8 k/uL (1.3-7.7); Neutrophils % (A) 86 %; Platelet Count 146 k/uL (150-450); RBC 4.01 m/uL (3.80-5.40); RDW 14.1 % (11.5-15.5)
[2018-08-10] MEDS: ACETAMINOPHEN TAB 325 MG TAB PO PRN ×2 (15:33→23:28)
[2018-08-10 19:57] VITALS: RESP 16
[2018-08-11] MEDS: IBUPROFEN 600 MG TAB PO PRN ×2 (02:08→07:56)
[2018-08-11] MEDS: ACETAMINOPHEN TAB 325 MG TAB PO PRN (05:18)
--- NOTE | 2018-08-11 06:45 | P.PNOBGVD ---
Subjective - Subjective Patient reports: Reports appetite normal, Reports voiding normally, Reports pain well controlled, Reports ambulating normally : doing well Objective - Latest Vital Signs Latest vital signs: Vital Signs Temp Pulse Resp BP Pulse Ox 08/11/18 00:00 98.4 F 76 16 119/69 08/10/18 19:55 98.1 F 98 16 104/70 08/10/18 15:11 98.9 F 81 18 120/72 98 08/10/18 12:20 97.1 F L 61 18 115/70 08/10/18 11:45 99.4 F 81 18 105/58 08/10/18 11:15 98.6 F 95 18 117/70 08/10/18 10:45 99.2 F 71 18 99/58 08/10/18 10:30 80 96/59 08/10/18 10:15 98.7 F 76 18 108/67 08/10/18 09:45 99.2 F 93 18 129/71 Intake and Output 08/10/18 08/10/18 08/11/18 14:59 22:59 06:59 Intake Total 1000.0 Balance 1000.0 Intake: Intake, IV Titration 1000.0 Amount Oxytocin 20 Units/1000 ml 1000.0 Ns 1,000 ml @ 1 MILLIUNIT/MIN 3 mls/hr IV .Q24H [facility] Rx#:[id number] Other: # Voids 1 2 - Exam Lungs: bilateral: normal Chest: Normal S1, Normal S2 Extremities: Present: normal Abdomen: Present: normal appearance, soft Uterus: Present: normal, firm - Labs Labs: Abnormal Lab Results - Last 24 Hours (Table) 08/10/18 Range/Units 15:23 WBC 16.0 H (3.8-10.6) k/uL Plt Count 146 L (150-450) k/uL Neutrophils # 13.8 H (1.3-7.7) k/uL Assessment and Plan Assessment: Post day #1. Patient is resting without complaints desires to go home. Vital signs are stable she is afebrile. Uterus is firm nontender and she is having normal lochia. My impression this is a normal course. Plan is to continue routine care and discharge home later today. (1) 41 weeks gestation of Current Visit: No Status: Acute Code(s): Z3A.41 - 41 WEEKS GESTATION OF SNOMED Code(s): 99267288 (2) Previous delivery affecting Current Visit: No Status: Acute Code(s): O34.219 - MATERNAL CARE FOR UNSP TYPE SCAR FROM PREVIOUS DEL SNOMED Code(s): 071448598
--- NOTE | 2018-08-11 06:50 | P.DS ---
Providers Date of admission: 08/10/18 05:55 Expected date of discharge: 08/11/18 Attending physician: Christopher Aragon Primary care physician: Stated None - Discharge Diagnosis(es) (1) 41 weeks gestation of Current Visit: No Status: Acute (2) Previous delivery affecting Current Visit: No Status: Acute Hospital Course: Please see dictated H&P for intimate details of this patient's admission. Brief summary this is a pleasant 28-year-old 2 para 1 female 40-6/7 weeks gestation admitted to labor and delivery for trial of . Patient had uncomplicated induction of labor and one on have a vaginal delivery after section for viable male infant. Please see dictated delivery note. day #1 patient's felt to be stable for discharge home follow up with me in 6 weeks. Procedures: Induction of labor and vaginal delivery after section. Patient Condition at Discharge: Good Plan - Discharge Summary Discharge Rx Participant: Yes New Discharge Prescriptions: New Ibuprofen [Motrin] 600 mg PO Q6HR PRN #40 tab PRN Reason: Mild Pain Or Fever >= 100.5 No Action Pnv,Calcium 72/Iron/Folic Acid [ Plus Tablet] 1 tab PO DAILY Discharge Medication List Pnv,Calcium 72/Iron/Folic Acid [ Plus Tablet] 1 tab PO DAILY 12/01/16 [ History] Ibuprofen [Motrin] 600 mg PO Q6HR PRN #40 tab 08/11/18 [Rx] Follow up Appointment(s)/Referral(s): Christopher Aragon MD [STAFF PHYSICIAN] - 09/26/18 9:15 am Patient Instructions/Handouts: Vaginal Delivery (DC) Activity/Diet/Wound Care/Special Instructions: No intercourse or anything per vagina for 6 weeks. Please call if any fever, chills, excessive vaginal bleeding, and/or abdominal pain. Discharge Disposition: HOME SELF-CARE
[2018-08-11] MEDS: SENNOSIDES-DOCUSATE SODIUM 1 EACH TAB PO SCH (07:57)
[2018-08-11 08:01] VITALS: BP 115/70; PULSE 85; TEMP 97.5
== END 2018-08-11 11:55 | disposition home or self-care (01) | DRG 807 ==
LOC: 4FBP 05:55
PROVIDERS: ADMIT Obstetrics & Gynecology; ATTEND Obstetrics & Gynecology
PROC: 3E033VJ Introduction of Other Hormone into Peripheral Vein, Percutaneous Approach (ICD-10-PCS; principal; 2018-08-10)
PROC: 0KQM0ZZ Repair Perineum Muscle, Open Approach (ICD-10-PCS; principal; 2018-08-10)
PROC: 10E0XZZ Delivery of Products of Conception, External Approach (ICD-10-PCS; principal; 2018-08-10)
PROC: 0W8NXZZ Division of Female Perineum, External Approach (ICD-10-PCS; principal; 2018-08-10)
PROC: 10907ZC Drainage of Amniotic Fluid, Therapeutic from Products of Conception, Via Natural or Artificial Opening (ICD-10-PCS; principal; 2018-08-10)
DX: O48.0 Post-term pregnancy (principal); Z37.0 Single live birth; O34.219 Maternal care for unspecified type scar from previous cesarean delivery; O69.81X0 Labor and delivery complicated by cord around neck, without compression, not applicable or unspecified; O70.1 Second degree perineal laceration during delivery; Z3A.40 40 weeks gestation of pregnancy; Z82.49 Family history of ischemic heart disease and other diseases of the circulatory system; Z88.1 Allergy status to other antibiotic agents; Z88.0 Allergy status to penicillin; O76 Abnormality in fetal heart rate and rhythm complicating labor and delivery
CPT/HCPCS: 85025; 86850; 86900; 86901

== ENCOUNTER → 2023-09-12 | Outpatient (CLI) | payer MEDICAID ==
[2023-09-12 11:04] LABS: Basophils # (A) 0.05 X 10*3/uL (0.00-0.10); Basophils % (A) 0.9 %; Eosinophils # (A) 0.27 X 10*3/uL (0.04-0.35); Eosinophils % (A) 5.1 %; HCT 39.2 % (37.2-46.3); HGB 12.3 g/dL (12.0-15.0); Lymphocytes # (A) 2.23 X 10*3/uL (0.90-5.00); Lymphocytes % (A) 41.8 %; MCH 25.2 pg (27.0-32.0); MCHC 31.4 g/dL (32.0-37.0); MCV 80.3 FL (80.0-97.0); Mean Platelet Volume 11.3 FL (9.5-12.2); Monocytes # (A) 0.53 X 10*3/uL (0.20-1.00); Monocytes % (A) 9.9 %; NRBC Per 100 WBC 0 X 10*3/uL (0.00-0.01); Neutrophils # (A) 2.24 X 10*3/uL (1.80-7.70); Neutrophils % (A) 42.1 %; Platelet Count 178 X 10*3/uL (140-440); RBC 4.88 X 10*6/uL (4.10-5.20); RDW 16.9 % (11.5-14.5); WBC 5.33 X 10*3/uL (4.50-10.00)
[2023-09-12 11:35] LABS: ALT 6 U/L (8-44); AST 18 U/L (13-35); Albumin 4.3 g/dL (3.8-4.9); Albumin/Globulin Ratio 1.65 Ratio (1.60-3.17); Alkaline Phosphatase 52 U/L (41-126); Blood Urea Nitrogen 12.4 mg/dL (9.0-27.0); Calcium 9.2 mg/dL (8.7-10.3); Carbon Dioxide 23.6 mmol/L (21.6-31.8); Chloride 105 mmol/L (96-109); Chol/HDL Ratio 2.88 Ratio; Globulin 2.6 g/dL (1.6-3.3); Glucose 83 mg/dL (70-110); LDL Cholesterol,Calculated 106.8 mg/dL (0.0-131.0); Potassium 4.1 mmol/L (3.5-5.5); Sodium 138 mmol/L (135-145); Total Bilirubin 0.4 mg/dL (0.3-1.2); Total Protein 6.9 g/dL (6.2-8.2); VLDL Calculation 10.68 mg/dL (5.00-40.00)
== END | disposition home or self-care (01) ==
LOC: LABWHC1 07:04
PROVIDERS: ATTEND Family Medicine
DX: Z00.00 Encounter for general adult medical examination without abnormal findings (principal)
CPT/HCPCS: 36415; 80053; 80061; 82306; 82607; 83036; 84443; 85025